=== PATIENT | female | born 1970 | race Two or more races ===

== ENCOUNTER 2023-07-29 10:16 | Emergency (ER) | payer MEDICAID ==
[~2023-07-29] VITALS: Ht 170.2 cm; Wt 98.9 kg
[2023-07-29 10:28] VITALS: O2SAT 99
[2023-07-29] MEDS ORDERED: TUSSL MT (13:33)
[2023-07-29] MEDS ORDERED: ONDA4TAB50 MT (13:37)
[2023-07-29] MEDS ORDERED: ONDANSETRON 4MG ODT PO ONE (13:45)
[2023-07-29 14:49] VITALS: BP 131/87; PULSE 76; RESP 19; TEMP 98.7
== END 2023-07-29 14:50 | disposition home or self-care (01) ==
LOC: ER 10:47
DX: B34.9 Viral infection, unspecified (principal); Z90.49 Acquired absence of other specified parts of digestive tract; Z98.890 Other specified postprocedural states; Z86.39 Personal history of other endocrine, nutritional and metabolic disease
CPT/HCPCS: 99283; 71045; Q0162

== ENCOUNTER 2024-01-14 14:50 | Emergency (ER) | payer MEDICAID ==
[~2024-01-14] VITALS: Ht 170.2 cm; Wt 70.5 kg
[~2024-01-14 14:50] MED LIST: ONDA4TAB50 MT; TUSSL MT
[2024-01-14 15:26] VITALS: O2SAT 99
[2024-01-14] MEDS ORDERED: TOPUD PO (18:23)
[2024-01-14] MEDS ORDERED: IBUP-2028 MT (18:23)
[2024-01-14] MEDS ORDERED: LEVO112T7 MT (18:36)
[2024-01-14] MEDS ORDERED: PARO10TA74 MT (18:36)
[2024-01-14 18:46] VITALS: BP 142/80; PULSE 84; RESP 18; TEMP 98.4
== END 2024-01-14 18:51 | disposition home or self-care (01) ==
LOC: ER 14:50
DX: S00.83XA Contusion of other part of head, initial encounter (principal); Z04.9 Encounter for examination and observation for unspecified reason; Z98.890 Other specified postprocedural states; Z86.39 Personal history of other endocrine, nutritional and metabolic disease; Z76.0 Encounter for issue of repeat prescription; Y04.0XXA Assault by unarmed brawl or fight, initial encounter; Y93.89 Activity, other specified; Y92.89 Other specified places as the place of occurrence of the external cause; Y99.8 Other external cause status
CPT/HCPCS: 70486; 99284

== ENCOUNTER 2024-12-20 12:54 | Inpatient (IN) | payer SELFPAY ==
[~2024-12-20] VITALS: Ht 170.2 cm; Wt 64.4 kg
[~2024-12-20 12:54] MED LIST changes: +IBUP-2028 MT; +LEVO112T7 MT; +PARO10TA74 MT; +TOPUD PO
[2024-12-20 13:13] VITALS: O2SAT 99
[2024-12-20 15:45] LABS: BASOPHILS % 0.5 % (0.0-2.0); EOSINOPHILS % 2.4 % (0.0-5.0); HEMATOCRIT. 41.7 % (36.0-48.0); HEMOGLOBIN. 13.7 g/dL (12.0-16.0); LYMPHOCYTES % 32.3 % (20.0-50.0); MEAN CORPUSCULAR HEMOGLOBIN 31.7 pg (28.0-32.0); MEAN CORPUSCULAR HGB CONC 32.9 g/dL (31.0-37.0); MEAN CORPUSCULAR VOLUME 96.3 fL (81.0-99.0); MEAN PLATELET VOLUME 8.9 fl (7.4-10.4); MONOCYTES % 5.9 % (2.0-8.0); NEUTROPHILS % 58.9 % (40.0-76.0); PLATELET 314 x1000/uL (130-400); RED BLOOD CELL COUNT 4.33 mill/uL (4.2-5.4); RED CELL DISTRIBUTION WIDTH 14.4 % (11.6-14.6); WHITE BLOOD COUNT 10.7 x1000/uL (4.5-11.0)
[2024-12-20 15:54] LABS: CHLORIDE 107 mEq/L (98-107); SODIUM 137 mEq/L (136-145)
[2024-12-20 15:55] LABS: CARBON DIOXIDE 23 mEq/L (21-32)
[2024-12-20 15:56] LABS: CALCIUM 9.7 mg/dL (8.7-10.4)
[2024-12-20 16:00] LABS: CREATININE 1.1 mg/dL (0.6-1.0); GLUCOSE 106 mg/dL (70-105); UREA NITROGEN BLOOD 12 mg/dL (9-23)
[2024-12-20 16:02] LABS: ALANINE AMINOTRANSFERASE 11 IU/L (10-49); ALBUMIN 4.1 g/dL (3.2-4.8); ASPARTATE AMINOTRANSFERASE 19 IU/L (<34); BILIRUBIN TOTAL 0.3 mg/dL (0.1-1.0)
[2024-12-20 16:03] LABS: PROTEIN TOTAL 7.5 g/dL (6.0-8.3)
[2024-12-20 17:00] LABS: CLARITY URINE CLEAR (CLEAR); COLOR URINE YELLOW (YELLOW); GLUCOSE URINE NEGATIVE (NEGATIVE); KETONES URINE NEGATIVE (NEGATIVE); LEUKOCYTE ESTERASE URINE TRACE (NEGATIVE); NITRITE URINE NEGATIVE (NEGATIVE); OCCULT BLOOD URINE 2+ (NEGATIVE); PH URINE 5.5 (4.5-8.0); PROTEIN URINE TRACE (NEGATIVE); SPECIFIC GRAVITY URINE 1.015 (1.005-1.030); UROBILINOGEN URINE 0.2 E.U./dL (0.2-1.0)
[2024-12-20 17:20] LABS: BACTERIA URINE 1+; SQUAMOUS EPITHELIAL CELL URINE 1+ /lpf (RARE/1+)
[2024-12-20 17:21] LABS: WBC URINE 0-2 /hpf (0-2)
[2024-12-20] MEDS: METRONIDAZOLE 500 MG PREMIX 100 ML IV ONE (17:59)
[2024-12-20] MEDS: SODIUM CHLORIDE 0.9% 1,000 ML IV ONE (17:59)
[2024-12-20] MEDS: LEVOFLOXACIN 750MG PREMIX 150 ML IV ONE (19:00)
[2024-12-20 20:00] VITALS: BP 137/92; PULSE 68; RESP 16; TEMP 36.2
[2024-12-20 20:47] VITALS: BP 137/92; PULSE 68; RESP 16; TEMP 36.3
[2024-12-20] MEDS ORDERED: ACETAMINOPHEN 325MG TABLET PO PRN (23:15)
[2024-12-20] MEDS: KETOROLAC 30MG/ML VIAL IV PRN (23:26)
[2024-12-21] VITALS: BP 137/84; PULSE 70; RESP 19; TEMP 36.5
[2024-12-21] MEDS ORDERED: CLONIDINE 0.1MG TABLET PO PRN (02:00)
[2024-12-21] MEDS ORDERED: ACETAMINOPHEN 325MG TABLET PO PRN ×2 (02:00)
[2024-12-21] MEDS ORDERED: DIPHENHYDRAMINE 50MG/ML VIAL IV PRN (02:00)
[2024-12-21] MEDS ORDERED: ONDANSETRON HCL 4MG/2ML INJ IV PRN (02:00)
[2024-12-21] MEDS ORDERED: MAGNESIUM/ALUMINUM HYDROXIDE/SIMETHICONE 30ML UDC PO PRN (02:00)
[2024-12-21] MEDS: ZOLPIDEM TARTRATE 5MG TABLET PO PRN (03:06)
[2024-12-21 04:00] VITALS: BP 138/85; PULSE 69; RESP 19; TEMP 36.7
[2024-12-21] MEDS: LEVOTHYROXINE SODIUM 112MCG TABLET PO SCH (06:21)
[2024-12-21] MEDS: SODIUM CHLORIDE 0.9% 3ML FLUSH IVF SCH (06:22)
[2024-12-21] MEDS ORDERED: LEVO137C5 PO (07:30)
[2024-12-21 08:00] VITALS: BP 147/75; PULSE 78; RESP 20; TEMP 36.8; O2SAT 100
[2024-12-21 12:00] VITALS: BP 153/70; PULSE 74; RESP 20; TEMP 36.8; O2SAT 98
[2024-12-21 13:36] VITALS: BP 153/70; PULSE 76; RESP 18; TEMP 36.7; O2SAT 98
== END 2024-12-21 15:21 | disposition home or self-care (01) | DRG 347 ==
LOC: ER 12:54 → EDBEDREQ 18:29 → EDBEDREQTM 18:29 → 8EST 20:04
PROVIDERS: ADMIT Internal Medicine; ATTEND Internal Medicine
DX: M54.50 Low back pain, unspecified (principal); M32.9 Systemic lupus erythematosus, unspecified; E89.0 Postprocedural hypothyroidism; G89.29 Other chronic pain; F32.A Depression, unspecified; K58.9 Irritable bowel syndrome, unspecified; M81.0 Age-related osteoporosis without current pathological fracture; N18.30 Chronic kidney disease, stage 3 unspecified; Z90.49 Acquired absence of other specified parts of digestive tract; Z79.899 Other long term (current) drug therapy
CPT/HCPCS: 36415; 72148; 74176; 80053; 81003; 85025; A4606; J1885; J1956; J3490; J7030